=== PATIENT | male | born 1950 | race Caucasian/White ===

== ENCOUNTER → 2016-07-16 | Outpatient (CLI) | payer MEDICARE | LOC: PCVCCLINIC 09:20 | PROVIDERS: ATTEND Internal Medicine Cardiovascular Disease | DX: I25.10 Atherosclerotic heart disease of native coronary artery without angina pectoris (principal); E78.00 Pure hypercholesterolemia, unspecified; I12.9 Hypertensive chronic kidney disease with stage 1 through stage 4 chronic kidney disease, or unspecified chronic kidney disease; N18.9 Chronic kidney disease, unspecified | CPT/HCPCS: 93005; G0463 ==

== ENCOUNTER → 2017-02-03 | Outpatient (CLI) | payer MEDICARE ==
--- NOTE | 2017-02-03 16:02 | PCVCIMAG ---
APPROVED REPORT Study performed: 02/03/2017 14:01:35 EXAM: Comprehensive 2D, Doppler, and color-flow Echocardiogram Patient Location: Echo lab Status: routine Other Information Study Quality: Adequate Risk Factors: Cardiac Risk Factors: HTN Indications CAD CABG 2D Dimensions LVEF(%): 50.28 (>50%) IVSd: 8.51 (7-11mm) LVDd: 48.96 mm PWd: 7.72 (7-11mm) LVDs: 36.42 (25-40mm) Left Atrium: 46.24 (27-40mm) Aortic Root: 31.72 mm LV Single Plane 4CH: 51.18 % LV Single Plane 2CH: 52.96 %Noel's LVEF: 52.07 % Biplane EF: 51.9 % Volumes Left Atrial Volume (Systole) Single Plane 4CH: 76.65 mLSingle Plane 2CH: 75.08 mL LA ESV Index: 40.00 mL/m2 Aortic Valve AoV Peak Marco Antonio.: 1.69 m/s AO Peak Gr.: 11.45 mmHgLVOT Max P.46 mmHg LVOT Max V: 1.06 m/s Mitral Valve E/A Ratio: 2.2 MV Decel. Time: 257.30 ms MV E Max Marco Antonio.: 0.93 m/s MV A Marco Antonio.: 0.42 m/s IVRT: 96.89 ms Pulmonary Valve PV Peak Marco Antonio.: 1.05 m/sPV Peak Gr.: 4.42 mmHg Pulmonary Vein P Vein S: 0.72 m/sP Vein A: 0.23 m/s P Vein D: 0.72 m/sP Vein A Dur.: 96.9 msec P Vein S/D Ratio: 1.00 Tricuspid Valve TR Peak Marco Antonio.: 2.77 m/s TR Peak Gr.: 30.72 mmHg Left Ventricle The left ventricle is normal size. There is normal LV segmental wall motion. There is normal left ventricular wall thickness. Left ventricular systolic function is normal. The left ventricular ejection fraction is within the normal range. LVEF is 50-55%. The left ventricular diastolic function is normal. Right Ventricle The right ventricle is normal size. The right ventricular systolic function is normal. Atria The left atrium size is moderately dilated. The right atrium size is normal. Aortic Valve The aortic valve is normal in structure. No aortic regurgitation is present. There is no aortic valvular stenosis. Mitral Valve Mild mitral annular calcification. Mild mitral regurgitation. No evidence of mitral valve stenosis. Tricuspid Valve The tricuspid valve is normal in structure. Mild tricuspid regurgitation wtih PAP of 38 mmHg. Pulmonic Valve The pulmonary valve is normal in structure. There is no pulmonic valvular regurgitation. Great Vessels The aortic root is normal in size. IVC is normal in size and collapses with >50% inspiration Pericardium There is no pericardial effusion. <Conclusion> The left ventricle is normal size. Left ventricular systolic function is normal. The right ventricle is normal size. The left atrium size is moderately dilated. The aortic valve is normal in structure. Mild mitral regurgitation. Mild tricuspid regurgitation wtih PAP of 38 mmHg.
== END | disposition home or self-care (01) ==
LOC: PCVCIMAG 14:12
PROVIDERS: ATTEND Internal Medicine Cardiovascular Disease
DX: I08.1 Rheumatic disorders of both mitral and tricuspid valves (principal); E78.00 Pure hypercholesterolemia, unspecified; E78.5 Hyperlipidemia, unspecified; I12.0 Hypertensive chronic kidney disease with stage 5 chronic kidney disease or end stage renal disease; E11.22 Type 2 diabetes mellitus with diabetic chronic kidney disease; N18.6 End stage renal disease; Z79.4 Long term (current) use of insulin; Z90.79 Acquired absence of other genital organ(s); Z95.1 Presence of aortocoronary bypass graft; Z79.82 Long term (current) use of aspirin; Z86.718 Personal history of other venous thrombosis and embolism; Z79.899 Other long term (current) drug therapy; Z87.891 Personal history of nicotine dependence
CPT/HCPCS: 93005; 93306; G0463

== ENCOUNTER → 2017-08-11 | Outpatient (CLI) | payer MEDICARE | END | disposition home or self-care (01) | LOC: PCVCCLINIC 11:36 | DX: I25.10 Atherosclerotic heart disease of native coronary artery without angina pectoris (principal); I10 Essential (primary) hypertension; E78.00 Pure hypercholesterolemia, unspecified; R94.31 Abnormal electrocardiogram [ECG] [EKG]; Z79.82 Long term (current) use of aspirin; Z79.899 Other long term (current) drug therapy; Z87.891 Personal history of nicotine dependence | CPT/HCPCS: 93005; G0463 ==

== ENCOUNTER → 2019-03-22 | Outpatient (CLI) | payer MEDICARE ==
--- NOTE | 2019-03-22 10:38 | PCVCIMAG ---
APPROVED REPORT Study performed: 03/22/2019 09:08:29 EXAM: Comprehensive 2D, Doppler, and color-flow Echocardiogram Patient Location: Echo lab Status: routine BSA: 1.98 HR: 63 bpmBP: 140/60 mmHg Rhythm: NSR Other Information Study Quality: Adequate Risk Factors: Cardiac Risk Factors: HTN, Hyperlipidemia, DM Indications CAD Kidney transplant, CABG 2D Dimensions IVSd: 14.82 (7-11mm)LVOT Diam: 19.72 (18-24mm) LVDd: 38.91 mm PWd: 11.21 (7-11mm)Ascending Ao: 30.85 (22-36mm) LVDs: 36.97 (25-40mm) Left Atrium: 45.53 (27-40mm) Aortic Root: 29.44 mm LV Single Plane 4CH: 47.23 % LV Single Plane 2CH: 50.92 % Biplane EF: 49.2 % Volumes Left Atrial Volume (Systole) Single Plane 4CH: 58.08 mLSingle Plane 2CH: 48.70 mL LA ESV Index: 28.00 mL/m2 Aortic Valve AoV Peak Marco Antonio.: 2.18 m/s AO Peak Gr.: 19.02 mmHgLVOT Max P.26 mmHg LVOT Max V: 1.03 m/s PATRICIO Vmax: 1.44 cm2 Mitral Valve E/A Ratio: 2.3 MV Decel. Time: 204.66 ms MV E Max Marco Antonio.: 1.17 m/s MV A Marco Antonio.: 0.51 m/s Pulmonary Valve PV Peak Gr.: 3.01 mmHg Tricuspid Valve TR Peak Marco Antonio.: 2.68 m/s TR Peak Gr.: 28.76 mmHg Left Ventricle The left ventricle is normal size. There is normal LV segmental wall motion. There is normal left ventricular wall thickness. The left ventricular systolic function is normal. The left ventricular ejection fraction is within the normal range. LVEF is 55%. Grade II - pseudonormal filling dynamics. Right Ventricle The right ventricle is normal size. The right ventricular systolic function is normal. Atria The left atrium size is normal. The right atrium size is normal. Aortic Valve The Aortic valve is sclerotic. No aortic regurgitation is present. There is no aortic valvular stenosis. Mitral Valve The mitral valve is normal in structure. Trace mitral regurgitation. No evidence of mitral valve stenosis. Tricuspid Valve The tricuspid valve is normal in structure. Trace to mild tricuspid regurgitation. Pulmonary artery pressure is 39mmHg. Pulmonic Valve The pulmonary valve is normal in structure. There is no pulmonic valvular regurgitation. Great Vessels The aortic root is normal in size. IVC is mildly dilated. Pericardium There is no pericardial effusion. <Conclusion> The left ventricle is normal size. There is normal left ventricular wall thickness. The left ventricular systolic function is normal. Grade II - pseudonormal filling dynamics. The right ventricle is normal size. The left atrium size is normal. The Aortic valve is sclerotic. Trace mitral regurgitation. Trace to mild tricuspid regurgitation. Pulmonary artery pressure is 39mmHg.
== END | disposition home or self-care (01) ==
LOC: PCVCIMAG 09:32
PROVIDERS: ATTEND Internal Medicine Cardiovascular Disease
DX: I08.2 Rheumatic disorders of both aortic and tricuspid valves (principal); I25.10 Atherosclerotic heart disease of native coronary artery without angina pectoris; I10 Essential (primary) hypertension; E78.00 Pure hypercholesterolemia, unspecified; R60.9 Edema, unspecified; Z95.1 Presence of aortocoronary bypass graft; Z79.82 Long term (current) use of aspirin
CPT/HCPCS: 93005; 93306; G0463